=== PATIENT | female | born 1950 | race Caucasian/White ===

== ENCOUNTER 2022-09-19 21:06 | Inpatient (IN) | payer MEDICARE, OTHER ==
[~2022-09-19] VITALS: Ht 167.6 cm; Wt 66.7 kg
--- NOTE | 2022-09-19 21:15 | NUR ---
[id number] FROM HOME C/O GLF WITH LEFT KNEE PAIN. PT AAOX3. TOLERATING R/A WELL WITH NO RESP DISRESS. CONNECTED PT TO POX AND MONITOR. SAFETY MEASURES IN PLACE.
--- NOTE | 2022-09-19 22:01 | NUR ---
PATIENT TAKEN TO CT
--- NOTE | 2022-09-19 22:26 | NUR ---
AFFILIATE MARKETING COORDINATOR AT PT'S BEDSIDE
--- NOTE | 2022-09-19 23:10 | NUR ---
R HAND #20G S/L BLOOD AND COVID ANTIGEN SWAB COLLECTED AND SENT TO LAB
--- NOTE | 2022-09-19 23:10 | NUR ---
PT NOT ABLE TO URINATE AT THIS TIME; WILL TRY TO COLLECT URINE SAMPLE LATER
--- NOTE | 2022-09-19 23:31 | NUR ---
CAR LOADER AT PT'S BEDSIDE
--- NOTE | 2022-09-19 23:48 | NUR ---
URINE COLLECTED AND SENT TO LAB
[2022-09-20 00:01] LABS: BASOPHILS % (AUTO) 0.8 % (0.0-2.0); EOSINOPHILS % (AUTO) 3.2 % (0.0-6.0); HEMATOCRIT 39 % (33-45); HEMOGLOBIN 12.6 g/dL (11.5-14.8); LYMPHOCYTES # (AUTO) 0.9 K/uL (0.8-4.8); LYMPHOCYTES % (AUTO) 20.7 % (20.0-44.0); MEAN CORPUSCULAR HGB CONC 33 g/dl (31.0-36.0); MEAN CORPUSCULAR VOLUME 95 fL (82-100); MONOCYTES # (AUTO) 0.6 K/uL (0.1-1.30); MONOCYTES % (AUTO) 13.6 % (2.0-12.0); NEUTROPHILS # (AUTO) 2.8 K/uL (1.8-8.9); NEUTROPHILS % (AUTO) 61.7 % (43.0-81.0); PLATELET COUNT (AUTO) 230 K/uL (150-450); RED BLOOD CELL COUNT(AUTO) 4.07 MIL/uL (4.0-5.2); WHITE BLOOD COUNT (AUTO) 4.5 K/uL (4.3-11.0)
[2022-09-20 00:08] LABS: CALCIUM, SERUM 9.7 mg/dL (8.5-10.1); CREATININE 0.9 mg/dL (0.6-1.3); POTASSIUM 4.3 mmol/L (3.5-5.1)
[2022-09-20 00:13] LABS: ALBUMIN 3.8 g/dL (3.4-5.0); BILIRUBIN,DIRECT 0.2 mg/dL (0.0-0.2); BILIRUBIN,TOTAL 0.5 mg/dL (0.2-1.0); TOTAL PROTEIN, SERUM 7.6 g/dL (6.4-8.2)
[2022-09-20 01:19] LABS: BILIRUBIN,URINE NEGATIVE (NEGATIVE); COLOR,URINE YELLOW (YELLOW); LEUKOCYTE ESTERASE ,URINE NEGATIVE (NEGATIVE); NITRITE, URINE NEGATIVE (NEGATIVE); PROTEIN,URINE NEGATIVE (NEGATIVE); UGLUCOSE NEGATIVE (NEGATIVE); UROBILINOGEN,URINE 0.2 EU/dL (0.2)
--- NOTE | 2022-09-20 01:49 | NUR ---
MICROELECTRONICS TECHNICIAN AT PT'S BEDSIDE
[2022-09-20] MEDS ORDERED: IV NS 0.9% 1,000 ML IV PRN (02:00)
[2022-09-20] MEDS ORDERED: AMLO-213 PO (02:00)
--- NOTE | 2022-09-20 03:54 | NUR ---
OFFERED PT BED SANTIAGO; ADLS DONE. PT KEPT CLEAN AND DRY. SAFETY MEASURES IN PLACE.
--- NOTE | 2022-09-20 05:30 | NUR ---
EMPLOYEE HEALTH RN AT PT'S BEDSIDE
[2022-09-20] MEDS: BLOOD SUGAR DIAGNOSTIC 1 EACH STRIP IN SCH ×7 (05:32→21:55)
[2022-09-20 05:49] LABS: BASOPHILS % (AUTO) 0.4 % (0.0-2.0); EOSINOPHILS % (AUTO) 3.2 % (0.0-6.0); HEMATOCRIT 38 % (33-45); HEMOGLOBIN 12.8 g/dL (11.5-14.8); LYMPHOCYTES # (AUTO) 0.7 K/uL (0.8-4.8); LYMPHOCYTES % (AUTO) 19.9 % (20.0-44.0); MEAN CORPUSCULAR HGB CONC 34 g/dl (31.0-36.0); MEAN CORPUSCULAR VOLUME 94 fL (82-100); MONOCYTES # (AUTO) 0.5 K/uL (0.1-1.30); MONOCYTES % (AUTO) 14.9 % (2.0-12.0); NEUTROPHILS # (AUTO) 2.2 K/uL (1.8-8.9); NEUTROPHILS % (AUTO) 61.6 % (43.0-81.0); PLATELET COUNT (AUTO) 245 K/uL (150-450); RED BLOOD CELL COUNT(AUTO) 4.07 MIL/uL (4.0-5.2); WHITE BLOOD COUNT (AUTO) 3.6 K/uL (4.3-11.0)
[2022-09-20 06:13] LABS: ALBUMIN 3.5 g/dL (3.4-5.0); BILIRUBIN,TOTAL 0.6 mg/dL (0.2-1.0); CALCIUM, SERUM 9.8 mg/dL (8.5-10.1); CREATININE 0.9 mg/dL (0.6-1.3); MAGNESIUM 2.1 mg/dL (1.8-2.4); PHOSPHORUS 4.3 mg/dL (2.5-4.9); POTASSIUM 3.9 mmol/L (3.5-5.1); TOTAL PROTEIN, SERUM 7.3 g/dL (6.4-8.2)
[2022-09-20 06:19] LABS: THYROID STIMULATING HORMONE 0.329 uIU/mL (0.358-3.74)
--- NOTE | 2022-09-20 07:15 | NUR ---
ENDORSED PT TO TRAMAINE RN FOR ROWAN. VSS. SAFETY MEASURES IN PLACE. ALL NEEDS MET AT THIS TIME.
--- NOTE | 2022-09-20 07:43 | NUR ---
SPOKE W/ LAB; COVID TEST ALREADY DONE BUT NOT SHOWING ON THE SEROLOGY LAB.
--- NOTE | 2022-09-20 07:49 | NUR ---
COVID NEGATIVE PER PRINTED RESULT; PLACED IN PT'S CHART.
--- NOTE | 2022-09-20 07:56 | NUR ---
bed assigned going to 306.1
--- NOTE | 2022-09-20 08:21 | NUR ---
report given to edwardo brice. awaiting transfer to floor.
[2022-09-20] MEDS ORDERED: ASPIRIN 300 MG/SUPP.RECT RC SCH (09:00)
[2022-09-20] MEDS: ASPIRIN 81 MG TAB.CHEW PO SCH (09:00)
[2022-09-20 09:57] VITALS: BP 179/77
[2022-09-20 10:00] VITALS: BP 110/71
--- NOTE | 2022-09-20 10:00 | NUR ---
RN ADMITTING NOTES RECEIVED PATIENT VIA GURNEY ACCOMPANIED BY ER STAFF. PATIENT A/Ox3, IV ACCESS R HAND #20G SL. INTACT AND PATIENT. PATIENT ORIENTED TO UNIT AND STAFF, AND HOW TO USE CALL LIGHT. V/S TAKEN, BP HIGH, MD AWARE. FULL BODY ASSESSMENT COMPLETED: CARDIAC WNL, RESPIRATORY WNL, GI/ CONTINENT, SKIN ISSUES: SCAB ON R BACK AND R BUTTOCKS. PHOTOS TAKEN AND DOCUMENTED IN CHART. SAFETY MEASURES IN PLACE:BED LOCKED AND IN LOWEST POSITION, SIDE RAILS UP x3, HOB ELEVATED, CALL LIGHT WITHIN REACH, BED ALARM ON. WILL CONTINUE TO MONITOR.
[2022-09-20] MEDS ORDERED: ALPR0.5T8 PO (10:53)
[2022-09-20] MEDS ORDERED: ATOR80TA PO (10:53)
[2022-09-20] MEDS ORDERED: BENA20TA9 PO (10:53)
[2022-09-20 12:00] VITALS: BP 179/77
[2022-09-20 16:00] VITALS: BP 154/68
--- NOTE | 2022-09-20 16:50 | NUR ---
RN NOTES PATIENT COMPLAINING OF PAIN OF BACK, MD NOTIFIED, PRN TYLENOL OFFERED BUT REFUSED. WILL CONTINUE TO MONITOR.
--- NOTE | 2022-09-20 17:49 | NUR ---
RN NOTES PATIENT REFUSING BLOOD SUGAR CHECKS, SAYS SHE DOES NOT NEED THAT, SHE NEEDS PAIN MEDICATION.
--- NOTE | 2022-09-20 18:40 | NUR ---
MS RN CLOSING NOTES PATIENT RESTING IN BED, A/Ox 3, ABLE TO MAKE NEEDS KNOWN, STABLE ON ROOM AIR NO S/S OF RESPIRATORY DISTRESS OR SOB. IV ACCESS R HAND #20 SL. INTACT AND PATENT. PATIENT IS AMBULATORY WITH ASSIST/ASSISTIVE DEVICE. SKIN ISSUES: SCAB ON R BACK AND R BUTTOCKS. SAFETY MEASURES MAINTAINED:BED LOCKED AND IN LOWEST POSITION, SIDE RAILS UP x2, HOB ELEVATED, CALL LIGHT WITHIN REACH, BED ALARM ON. WILL ENDORSE TO NEXT SHIFT ANY ROWAN.
--- NOTE | 2022-09-20 19:20 | NUR ---
RN OPENING NOTE PATIENT IN BED, AWAKE. PATIENT IS ABLE TO MAKE NEEDS KNOWN, A/O X 3. PATIENT IS ON RA, TOLERATING WELL. BREATHING EVEN AND UNLABORED. PATIENT HAS A R HAND 20 G, PATIENT REPORTS PAIN WHEN BEING FLUSHED WITH NS, REDNESS NOTED ON THE IV SITE. WILL INSERT NEW IV ACCESS. PATIENT REPORTS BACK PAIN /. ROGELIO RODRIGUEZ FOLLOWED UP AGAIN WITH DR. RUIZ RE PAIN MED, WILL WAIT FOR RESPONSE. SAFETY MEASURES IN PLACE: BED LOCKED AND IN LOWEST POSITION, CALL LIGHT WITHIN REACH, SIDE RAILS UP. WILL MONITOR PATIENT CLOSELY.
[2022-09-20 20:00] VITALS: BP 153/76
--- NOTE | 2022-09-20 20:30 | NUR ---
INFORMED DELIVERY COORDINATOR MD REGARDING PATIENT REPORTING SEVERE PAIN ON HER BACK AND WANTS NORCO, AND REQUESTING RESTORIL FOR SLEEP. ORDER FOR NORCO 5-325 OBTAINED TID PRN FOR SEVERE PAIN AND RESTORIL 7.5 MG PO HS PRN. ORDER READ BACK.
--- NOTE | 2022-09-20 20:47 | NUR ---
LFA 22 G ESTABLISHED. PATENT AND INTACT, PATIENT STILL REFUSING IV FLUIDS. ON SALINE LOCK. RHAND IV ACCESS REMOVED.
[2022-09-20] MEDS: SIMVASTATIN 20 MG TABLET PO SCH (21:55)
[2022-09-20] MEDS: HYDROCODONE/APAP 5/325MG TABLET PO PRN (21:56)
--- NOTE | 2022-09-20 21:56 | NUR ---
RN NOTE PATIENT GIVEN NORCO 5-325 TAB FOR SEVERE PAIN. WILL REASSESS PAIN AT A LATER TIME
[2022-09-20] MEDS ORDERED: SIMVASTATIN 40 MG TABLET PO SCH (22:00)
[2022-09-20] MEDS: TEMAZEPAM 7.5 MG CAPSULE PO PRN (23:01)
--- NOTE | 2022-09-20 23:01 | NUR ---
RN NOTE PATIENT GIVEN RESTORIL TO HELP PATIENT SLEEP REQUESTED.
[2022-09-21] MEDS: BLOOD SUGAR DIAGNOSTIC 1 EACH STRIP IN SCH ×2 (06:34→11:11)
--- NOTE | 2022-09-21 06:47 | NUR ---
RN CLOSING NOTE PATIENT IN BED, EYES CLOSED, EASILY AWAKENED WITH VERBAL AND TOUCH STIMULI. PATIENT IS ABLE TO MAKE NEEDS KNOWN, A/O X 3. PATIENT IS ON RA, TOLERATING WELL. BREATHING EVEN AND UNLABORED. PATIENT HAS A LFA 22 G, SALINE LOCKED AT THIS TIME. PAIN MANAGED WITH NORCO 5-325. ALL NEEDS MET AND ATTENDED. ALL ORDERS CARRIED OUT. SAFETY MEASURES IN PLACE: BED LOCKED AND IN LOWEST POSITION, CALL LIGHT WITHIN REACH, SIDE RAILS UP. WILL ENDORSE TO DAY SHIFT NURSE FOR ROWAN. Addendum: 09/21/22 at 0654 by MC MACHUCA RN BS 114 MG/DL
--- NOTE | 2022-09-21 07:00 | NUR ---
MS RN OPENING NOTES: RECEIVED PT IN BED AWKE, ALERT AND ORIENTED X 4 AND ABLE TO VERBALIZED NEEDS. NO SOB OR CARDIAC DISTRESS NOTED. ON PAIN MANAGEMENT ORDERED, ON ROOM AIR AND TOLERATING WELL. IV ACCESS ON LFA G 22 PATENT, INTACT AND SALINE LOCKED AND REFUSING IV FLUIDS. SAFETY PRECAUTIONS MAINTAINED: BED LOCKED AND IN LOWEST POSITION, SIDE RAILS UP X 2. CALL LIGHT IN EASY REACH FOR HELP. WILL MONITOR PT ACCORDINGLY. KEPT RESTED AND COMFORTABLE.
[2022-09-21] MEDS: HYDROCODONE/APAP 5/325MG TABLET PO PRN ×3 (07:53→20:07)
[2022-09-21 08:00] VITALS: BP 140/82
[2022-09-21] MEDS: ASPIRIN 81 MG TAB.CHEW PO SCH (08:29)
--- NOTE | 2022-09-21 09:20 | NUR ---
RN NOTES: SEEN AND EXAMINED BY OT. ABLE TO WALK WITH WALKER, KNEES GIVING UP AT TIMES,ROTATOR CUFF BOTH SHOULDERS ABLE TO RAISE WITH LIMITATIONS, CHRONIC BACK PAIN.
--- NOTE | 2022-09-21 15:09 | NUR ---
RN NOTES: BLOOD SUGAR MONITORING ACHS PER DR VILLAREAL,INFORMED PT. REMIND DR VILLAREAL FOR MED RECON. STATED OKAY. INFORMED MD THAT PT ASKING FOR INCREASED NORCO DOSE FROM 5-325 TO 7-325, DECLINED.
--- NOTE | 2022-09-21 15:24 | NUR ---
RN NOTES: NORCO 5-325 INCREASED FREQUENCY TO Q 4 PRN FOR PAIN , PER DR VILLAREAL. ORDERS NOTED AND CARRIED OUT.
[2022-09-21 16:00] VITALS: BP 146/81
--- NOTE | 2022-09-21 18:42 | NUR ---
MS RN CLOSING NOTES: PT IN BED AWAKE, ALERT AND ORIENTED X 4 AND ABLE TO VERBALIZED NEEDS. NO SOB OR CARDIAC DISTRESS NOTED. ON PAIN MANAGEMENT ORDERED, ON ROOM AIR AND TOLERATING WELL. IV ACCESS ON LFA G 22 PATENT, INTACT AND SALINE LOCKED AND REFUSING IV FLUIDS. SAFETY PRECAUTIONS MAINTAINED: BED LOCKED AND IN LOWEST POSITION, SIDE RAILS UP X 2. CALL LIGHT IN EASY REACH FOR HELP. WILL MONITOR PT ACCORDINGLY. KEPT RESTED AND COMFORTABLE. ENDORSED TO NOC SHIFT FOR ROWAN.
--- NOTE | 2022-09-21 19:20 | NUR ---
RN OPENING NOTE PATIENT IN BED, AWAKE. PATIENT IS ABLE TO MAKE NEEDS KNOWN, A/O X 3. PATIENT IS ON RA, TOLERATING WELL. BREATHING EVEN AND UNLABORED. PATIENT HAS A LFA 22 G, SALINE LOCKED AT THIS TIME. PATIENT COMPLAINING OF PAIN ON HER BACK, WILL MANAGE PAIN APPROPRIATELY. PATIENT EXPRESSES FRUSTRATION REGARDING THE CHANNELS OF THE TV. NOT IN ANY APPARENT DISTRESS OTHERWISE. SAFETY MEASURES IN PLACE: BED LOCKED AND IN LOWEST POSITION, CALL LIGHT WITHIN REACH, SIDE RAILS UP. WILL MONITOR PATIENT CLOSELY.
[2022-09-21 20:00] VITALS: BP 155/88
[2022-09-21] MEDS: TEMAZEPAM 7.5 MG CAPSULE PO PRN (21:57)
[2022-09-21] MEDS: SIMVASTATIN 20 MG TABLET PO SCH (21:57)
--- NOTE | 2022-09-21 21:57 | NUR ---
RN NOTE PATIENT REQUESTED MED FOR SLEEPING. RESTORIL GIVEN PATIENT REQUESTED. ASKED PATIENT IF WE COULD TAKE PHOTOS OF HER SCAB, PATIENT REFUSED BECAUSE "THEY TOOK IT YESTERDAY ALREADY".
--- NOTE | 2022-09-22 06:47 | NUR ---
RN CLOSING NOTE PATIENT IN BED, EYES CLOSED, EASILY AWAKENED WITH VERBAL AND TOUCH STIMULI. PATIENT IS ABLE TO MAKE NEEDS KNOWN, A/O X 3. PATIENT IS ON RA, TOLERATING WELL. BREATHING EVEN AND UNLABORED. PATIENT HAS A LFA 22 G, SALINE LOCKED AT THIS TIME. PAIN MANAGED WITH NORCO 5-325. ALL NEEDS MET AND ATTENDED. ALL ORDERS CARRIED OUT. SAFETY MEASURES IN PLACE: BED LOCKED AND IN LOWEST POSITION, CALL LIGHT WITHIN REACH, SIDE RAILS UP. WILL ENDORSE TO DAY SHIFT NURSE FOR ROWAN.
[2022-09-22 08:00] VITALS: BP_SYST 114; BP_SYST 143; BP_DIAS 92
[2022-09-22] MEDS: AMLODIPINE BESYLATE 10 MG TABLET PO SCH (09:25)
[2022-09-22] MEDS: ASPIRIN 81 MG TAB.CHEW PO SCH (09:25)
[2022-09-22] MEDS: BENAZEPRIL HCL 20 MG TABLET PO SCH (09:25)
[2022-09-22] MEDS: ACETAMINOPHEN 325 MG TABLET PO PRN ×2 (09:47→09:48)
[2022-09-22] MEDS: ALPRAZOLAM 0.5 MG TABLET PO PRN ×2 (09:47→09:48)
[2022-09-22] MEDS: HYDROCODONE/APAP 5/325MG TABLET PO PRN ×2 (09:48→17:33)
[2022-09-22 16:00] VITALS: BP 127/59
--- NOTE | 2022-09-22 16:18 | NUR ---
X-RAY OF LEFT KNEE IN PROGRESS NOW, TWO PERSON TRANSFER FROM BED TO WHEEL CHAIR
[2022-09-22 20:00] VITALS: BP 135/72
--- NOTE | 2022-09-22 21:00 | NUR ---
MS/TELE/RN DURING INITIAL SHIFT ROUNDS, PATIENT WAS IN BED AWAKE, ALERT, ORIENTED, APPEARS COMFORTABLE, NO SIGNS OF DISTRESS NOTED, NO C/O, CALL LIGHT IN REACH, NEEDS ATTENDED, FALL PRECAUTIONS PER PROTOCOL IMPLEMENTED, WILL MONITOR.
[2022-09-22] MEDS: SIMVASTATIN 20 MG TABLET PO SCH (22:00)
[2022-09-22] MEDS ORDERED: ATORVASTATIN 40 MG TABLET PO SCH (22:00)
--- NOTE | 2022-09-23 02:11 | NUR ---
MS/TELE/RN PATIENT IS SLEEPING, APPEARS COMFORTABLE, NO SIGNS OF DISTRESS NOTED CALL LIGHT IN REACH, WILL CONTINUE TO MONITOR.
[2022-09-23] MEDS: HYDROCODONE/APAP 5/325MG TABLET PO PRN ×3 (03:58→21:29)
--- NOTE | 2022-09-23 06:23 | NUR ---
MS/TELE/RN PATIENT IS SLEEPING, APPEARS COMFORTABLE, NO SIGNS OF DISTRESS NOTED, CALL LIGHT IN REACH, ALL NEEDS ATTENDED AT THIS TIME, WILL CONTINUE TO MONITOR.
--- NOTE | 2022-09-23 07:59 | NUR ---
MS RN OPENING NOTES: PATIENT IN BED, AWAKE, A/O X 3, IS ABLE TO MAKE NEEDS KNOWN. PATIENT IS ON RA, TOLERATING WELL. BREATHING EVEN AND UNLABORED. DENIES PAIN AT THE MOMENT. PATIENT HAS A LFA 22 G, SALINE LOCKED; REFUSED IV FLUIDS AT THIS TIME. SAFETY MEASURES IN PLACE: BED LOCKED AND IN LOWEST POSITION, CALL LIGHT AND TABLE WITHIN REACH, SIDE RAILS UP X2, WILL CONTINUE WITH PLAN OF CARE DURING SHIFT.
[2022-09-23 08:00] VITALS: BP 143/68
[2022-09-23] MEDS: ASPIRIN 81 MG TAB.CHEW PO SCH (08:36)
[2022-09-23] MEDS: BENAZEPRIL HCL 20 MG TABLET PO SCH (08:36)
[2022-09-23] MEDS: AMLODIPINE BESYLATE 10 MG TABLET PO SCH (08:38)
--- NOTE | 2022-09-23 09:30 | NUR ---
MS RN NOTES: PT REFUSED AM LAB DRAW, LAB STAFF STATED THEY ATTEMPTED 3X THIS AM, PT DECLINED. RN SPOKE TO PT, EXPLAINED RATIONALE OF BLOOD DRAW, PT VERBALIZED UNDERSTANDING BUT CONTINUED TO DECLINE. PER LAB STAFF, ORDERS WILL BE CANCELLED, WILL MAKE MD AWARE.
[2022-09-23] MEDS ORDERED: ALPRAZOLAM 0.25 MG TABLET PO PRN (14:00)
[2022-09-23 16:00] VITALS: BP 135/68
[2022-09-23] MEDS: ALPRAZOLAM 0.5 MG TABLET PO PRN ×2 (16:33→23:40)
--- NOTE | 2022-09-23 18:28 | NUR ---
MS RN CLOSING NOTE; PATIENT IN BED, AWAKE, A/O X 3, IS ABLE TO MAKE NEEDS KNOWN. PATIENT IS ON RA, TOLERATING WELL. BREATHING EVEN AND UNLABORED. DENIES PAIN AT THE MOMENT. PATIENT HAS IV ACCESS AT LFA 22 G, SALINE LOCKED; REFUSED IV FLUIDS AT THIS TIME. DUE MEDS GIVEN, NEEDS MET AND KEPT CLEAN, DRY AND COMFORTABLE. SAFETY MEASURES IN PLACE: BED LOCKED AND IN LOWEST POSITION, CALL LIGHT AND TABLE WITHIN REACH, SIDE RAILS UP X2, WILL ENDORSE TO PM SHIFT.
[2022-09-23 20:00] VITALS: BP 116/64
--- NOTE | 2022-09-23 21:05 | NUR ---
MS/TELE/RN ON INITIAL SHIFT ROUNDING, PATIENT WAS SLEEPING, NO SIGNS OF DISTRESS NOTED, CALL LIGHT IN REACH, FALL PRECAUTIONS PER PROTOCOL IMPLEMENTED, WILL MONITOR.
[2022-09-23] MEDS: SIMVASTATIN 20 MG TABLET PO SCH (21:28)
--- NOTE | 2022-09-23 23:44 | NUR ---
MS/TELE/RN PATIENT GOT UPSET WHEN THE BED ALARM SOUNDED WHEN SHE WENT OUT OF BED TO THE BSC. EXPLAINED WHY SHE NEEDS TO HAVE A BED ALARM, PATIENT VERBALISED UNDERSTANDING BUT STILL REFUSED BED ALARM.
[2022-09-24] MEDS: HYDROCODONE/APAP 5/325MG TABLET PO PRN ×2 (06:41→10:45)
--- NOTE | 2022-09-24 06:42 | NUR ---
MS/TELE/RN PATIENT IS AWAKE, C/O PAIN IN LEFT KNEE 06/08, MEDICATED WITH NORCO 1 TAB PO ORDERED, ALL NEEDS ATTENDED AT THIS TIME, WILL CONTINUE TO MONITOR.
--- NOTE | 2022-09-24 07:35 | NUR ---
MS RN OPENING NOTES PATIENT SITTING ON THE EDGE OF THE BED, AWAKE, A/O X 3, ABLE TO MAKE NEEDS KNOWN. ON RA, TOLERATING WELL WITH BREATHING EVEN AND UNLABORED. NO SOB, NOT SHOWING ANY RESPIRATORY DISTRESS. DENIES PAIN AT THIS TIME. LAST PAIN MEDICATION WAS 0645. WITH IV ACCESS ON LFA G#22, SALINE LOCKED; FLUSHING WELL, PATENT. REFUSED IV FLUIDS AT THIS TIME. SAFETY MEASURES IN PLACE: BED LOCKED AND IN LOWEST POSITION, CALL LIGHT AND TABLE WITHIN REACH, SIDE RAILS UP X2. BEDSIDE COMMODE AND FWW AVAILABLE WELL. WILL CONTINUE WITH PLAN OF CARE DURING SHIFT.
[2022-09-24 08:00] VITALS: BP 145/76
[2022-09-24] MEDS: BENAZEPRIL HCL 20 MG TABLET PO SCH (08:39)
[2022-09-24] MEDS: ASPIRIN 81 MG TAB.CHEW PO SCH (08:39)
[2022-09-24] MEDS: AMLODIPINE BESYLATE 10 MG TABLET PO SCH (08:39)
[2022-09-24] MEDS ORDERED: HYDR-4279 PO (10:40)
[2022-09-24] MEDS ORDERED: TEMA7.5C PO (10:40)
[2022-09-24] MEDS ORDERED: ALPR0.5T8 PO (10:40)
[2022-09-24] MEDS ORDERED: SIMV-46 PO (10:40)
[2022-09-24] MEDS ORDERED: ACET325T53 PO (10:40)
[2022-09-24] MEDS ORDERED: ASPI-1169 PO (10:40)
[2022-09-24] MEDS ORDERED: INFLUENZA VACCINE 2022-23 0.5 ML DISP.SYRIN IM ONE (11:00)
[2022-09-24 12:16] VITALS: BP 130/65
--- NOTE | 2022-09-24 12:24 | NUR ---
MS DIALS SUPERVISOR NOTE PT DISCHARGED TO [facility] IN STABLE CONDITION. PT AOX4, ABLE TO MAKE NEEDS KBNOW, ON ROOM AIR SATURATING AT 98%, NO SOB NOTED, NOT IN ANY SIGN OF RESPIRATORY DISTRESS. VITAL SIGNS TAKEN AND RECORDED, STABLE. SKIN IS INTACT, PICTURES RETAKEN. PATIENT DENIES PAIN OR DISCOMFORT AT THIS MOMENT, PATIENT WAS GIVEN NORCO 5/325 AT 1045 AM. ALL BELONGINGS ACCOUNTED FOR INCLUDING CLOTHES AND VALUABLES, CHECKED BY VIRIDIA[address] WAY, FORM SIGNED BY THE PATIENT. DISCHARGE INSTRUCTIONS GIVEN TO RANDEE JOHNSON RN FROM THE SNF AT 1140. INFLUENZA VACCINE GIVEN ON L DELTOID. IV ACCESS IF LFA G#22 SL REMOVED WITH NO ACTIVE BLEEDING NOTED. DRY PRESSURE DRESSING APPLIED AT SITE. PT LEFT THE UNIT AT 1217 VIA RNEY BY 3 MUSEUM REGISTRAR. MD AND CHARGE NURSE AWARE OF THE DISCHARGE.
== END 2022-09-24 15:39 | DRG 566 ==
LOC: ER 21:23 → MED 09-20 08:11
PROVIDERS: ADMIT Student in an Organized Health Care Education/Training Program; ATTEND Nurse Practitioner Acute Care
DX: M25.462 Effusion, left knee (principal); M25.461 Effusion, right knee; G89.29 Other chronic pain; R29.6 Repeated falls; I10 Essential (primary) hypertension; E78.5 Hyperlipidemia, unspecified; W19.XXXA Unspecified fall, initial encounter; Z91.81 History of falling; Y92.049 Unspecified place in boarding-house as the place of occurrence of the external cause; M17.12 Unilateral primary osteoarthritis, left knee; M71.20 Synovial cyst of popliteal space [Baker], unspecified knee; M54.9 Dorsalgia, unspecified
CPT/HCPCS: 36415; 70450-TC; 71045-TC; 72131-TC; 73560-TC; 73564-TC; 73700-TC; 80048-TC; 80053-TC; 80076-TC; 82550-TC; 82962-TC; 83605-TC; 83690-TC; 83735-TC; 84100-TC; 84439-TC; 84443-TC; 84484-TC; 85025-TC; 87040-TC; 87081-TC; 92507-TC; 92521; 92526; 92611-TC; 93307-TC; 93880-TC; 93971-TC; 97110-TC; 97112-TC; 97116-TC; 97530-TC; 97535-TC; C9803; G0378; Q2036

== ENCOUNTER 2024-04-29 20:58 | Emergency (ER) | payer MEDICARE, OTHER ==
[~2024-04-29] VITALS: Ht 157.5 cm; Wt 65.8 kg
[~2024-04-29 20:58] MED LIST: ACET325T53 PO; ALPR0.5T8 PO; AMLO-213 PO; ASPI-1169 PO; ATOR80TA PO; BENA20TA9 PO; HYDR-4279 PO; SIMV-46 PO; TEMA7.5C PO
[2024-04-29 21:31] VITALS: TEMP 98.5
[2024-04-29] MEDS ORDERED: ACETAMINOPHEN ES 500 MG TABLET ONE (22:15)
[2024-04-29] MEDS: ACETAMINOPHEN ES 500 MG TABLET PO ONE (22:18)
[2024-04-30 03:09] VITALS: BP 121/68; O2SAT 98
== END 2024-04-30 03:32 ==
LOC: ER 21:03
DX: S82.002A Unspecified fracture of left patella, initial encounter for closed fracture (principal); I10 Essential (primary) hypertension; Z86.79 Personal history of other diseases of the circulatory system; Z60.2 Problems related to living alone; W18.39XA Other fall on same level, initial encounter; Y93.89 Activity, other specified; Y92.89 Other specified places as the place of occurrence of the external cause; Y99.8 Other external cause status
CPT/HCPCS: 73564-TC